=== PATIENT | male | born 1960 | race Caucasian/White ===

== ENCOUNTER 2017-08-16 07:03 | Day surgery (SDC) | payer OTHER ==
[2017-08-16] MEDS ORDERED: ONDANSETRON 4 MG INJ (08:20)
[2017-08-16] MEDS ORDERED: PROPOFOL 60 ML (08:29)
[2017-08-16] MEDS ORDERED: LIDOCAINE 2% (SDV) 5 ML INJ (08:29)
[2017-08-16] MEDS ORDERED: FENTAnyl 50 MCG/ML VIAL (09:27)
== END 2017-08-16 16:29 | disposition home or self-care (01) ==
LOC: GIL 07:03
DX: K29.50 Unspecified chronic gastritis without bleeding (principal); K57.30 Diverticulosis of large intestine without perforation or abscess without bleeding; K64.4 Residual hemorrhoidal skin tags; Z85.038 Personal history of other malignant neoplasm of large intestine; J44.9 Chronic obstructive pulmonary disease, unspecified; G40.909 Epilepsy, unspecified, not intractable, without status epilepticus; G47.30 Sleep apnea, unspecified; Z88.8 Allergy status to other drugs, medicaments and biological substances
CPT/HCPCS: 43239; 88305; 88312